=== PATIENT | female | born 1940 | race Caucasian/White ===

== ENCOUNTER 2017-11-14 10:05 | Emergency (ER) | payer MEDICARE ==
[2017-11-14 10:56] LABS: Protein, Urine (Dipstick) > or equal to 300 mg/dL (Neg-Trace)
[2017-11-14 10:59] LABS: #Basophils 0.1 thou/uL (0.0-0.2); #Eosinphils 0.1 thou/uL (0.0-0.7); #Lymphocytes 2.3 thou/uL (1.20-3.40); #Monocytes 0.6 thou/uL (0.11-0.59); #Neutrophils 6.4 thou/uL (1.40-6.50); %Basophils 1.3 % (0.0-1.0); %Eosinophils 1.4 % (0.0-10.0); %Lymphocytes 24.2 % (21.0-51.0); %Monocytes 5.8 % (0.0-10.0); %Neutrophils 67.4 % (42.0-75.0); Hemoglobin 12.4 g/dL (12.0-16.0); Mean Corpuscular HGB CONC 32.4 g/dL (32.0-36.0); Mean Corpuscular Hemoglobin 27.3 pg (27.0-31.0); Mean Corpuscular Volume 84.3 fL (78.0-98.0); Mean Platelet Volume 8.1 fL (7.4-10.4); Platelet Count 282 thou/uL (130-400); RBC Distribution Width 14.7 % (11.5-14.5); Red Blood Cell (RBC) Count 4.55 mill/uL (4.20-5.40); White Blood Cell (WBC) Count 9.5 thou/uL (4.8-10.8)
[2017-11-14 11:00] LABS: Nitrite Unable to Interpret (Negative)
[2017-11-14 11:01] LABS: Clarity Cloudy (Clear); Urobilinogen 0.2 mg/dL (0.2-1.0)
[2017-11-14 11:02] LABS: Bilirubin Small (Negative); Blood, Urine Large (Negative); Glucose, Urine (Dipstick) Negative (Negative); Specific Gravity, Urine 1.015 (1.005-1.030)
[2017-11-14 11:03] LABS: Bacteria/HPF Rare-Few HPF (None Seen); Leukocyte Unable to Interpret (Negative); RBC/HPF GREATER THAN 50-TNTC HPF (0-3); Squamous Epithelial 0-3 HPF (0-3); WBC/HPF 0-3 HPF (0-3)
[2017-11-14 11:06] LABS: pH, Urine 8.5 (5.0-9.0)
[2017-11-14 11:06] LABS: INR-International Normal Ratio 1.9; Prothrombin Time 21.5 SEC (12.0-14.7)
[2017-11-14 11:16] LABS: ALT (SGPT) 40 U/L (8-55); AST (SGOT) 33 U/L (5-34); Alkaline Phosphatase 70 U/L (40-150); Anion Gap 15 mmol/L (10-20); BUN (Urea Nitrogen) 10 mg/dL (9.8-20.1); Bilirubin, Total 0.5 mg/dL (0.2-1.2); Calc. Creatinine Clearance 0 mL/min (70-130); Carbon Dioxide 30 mmol/L (23-31); Chloride 94 mmol/L (98-107); Estimated GFR-MDRD 73; Globulin 3.1 g/dL (2.4-3.5); Glucose 151 mg/dL (83-110); Potassium 3.5 mmol/L (3.5-5.1); Protein, Total 7.1 g/dL (6.0-8.3); Sodium 135 mmol/L (136-145)
== END 2017-11-14 12:20 | disposition home or self-care (01) ==
LOC: MADERS 10:05
DX: R31.9 Hematuria, unspecified (principal); E11.9 Type 2 diabetes mellitus without complications; I48.91 Unspecified atrial fibrillation; I11.0 Hypertensive heart disease with heart failure; I50.9 Heart failure, unspecified; E03.9 Hypothyroidism, unspecified; Z79.01 Long term (current) use of anticoagulants; Z79.899 Other long term (current) drug therapy; Z79.84 Long term (current) use of oral hypoglycemic drugs
CPT/HCPCS: 36415; 80053; 81003; 81015; 85025; 85610; 99283

== ENCOUNTER 2019-11-11 11:26 | Outpatient (CLI) | payer MEDICARE ==
[2019-11-11 11:55] LABS: ALT (SGPT) 15 U/L (8-55); AST (SGOT) 21 U/L (5-34); Albumin 3.7 g/dL (3.4-4.8); Alkaline Phosphatase 116 U/L (40-110); Anion Gap 16 mmol/L (10-20); BUN (Urea Nitrogen) 10 mg/dL (9.8-20.1); Bilirubin, Total 0.4 mg/dL (0.2-1.2); Calc. Creatinine Clearance 0 mL/min (70-130); Calcium 8.7 mg/dL (7.8-10.44); Carbon Dioxide 28 mmol/L (23-31); Cardiac Risk 2.4 (Less than 4.5); Chloride 94 mmol/L (98-107); Cholesterol 76 mg/dl (< 200 Desired); Estimated GFR-MDRD 79; Globulin 2.5 g/dL (2.4-3.5); Glucose 95 mg/dL (83-110); HDL Cholesterol 32 mg/dL (>60 Neg Risk); LDL Cholesterol, Calculated 28 mg/dL; Protein, Total 6.2 g/dL (6.0-8.3); Sodium 134 mmol/L (136-145); Triglycerides 82 mg/dL (Less than 150)
[2019-11-11 17:45] LABS: Hemoglobin A1c 5.7 % (4.0-6.0)
[2019-11-11 18:22] LABS: Creatinine, Urine 89.6 mg/dL (47-110); Microalbumin Urine 2.2 mg/dL (0.5-50.0); Microalbumin/Creat Ratio 24.6 mg/g (Less than 30)
== END 2019-11-11 11:27 | disposition home or self-care (01) ==
LOC: MADLAB 11:26
PROVIDERS: ATTEND Family Medicine
DX: E11.22 Type 2 diabetes mellitus with diabetic chronic kidney disease (principal); I12.9 Hypertensive chronic kidney disease with stage 1 through stage 4 chronic kidney disease, or unspecified chronic kidney disease; N18.2 Chronic kidney disease, stage 2 (mild); E03.9 Hypothyroidism, unspecified; E78.2 Mixed hyperlipidemia
CPT/HCPCS: 80053; 80061; 82043; 83036